=== PATIENT | male | born 1985 | race Caucasian/White ===

== ENCOUNTER 2016-07-15 19:29 | Emergency (ER) | payer OTHER ==
[~2016-07-15] VITALS: Ht 172.7 cm; Wt 128.7 kg
[2016-07-15 19:35] VITALS: BP 141/85; PULSE 84; RESP 20; TEMP 98.1; O2SAT 100
[2016-07-15] MEDS ORDERED: CIPR250T52 PO (19:42)
[2016-07-15] MEDS ORDERED: METR250 PO (19:42)
--- NOTE | 2016-07-15 20:19 | PD ---
HPI Chief Complaint: Skin Problem Time Seen by Provider: 20:13 Travel History International Travel<30 days: No Contact w/Intl Traveler<30days: No Traveled to known affect area: No History of Present Illness HPI 31-year-old right-hand dominant male presents to the ED for evaluation of 3 day history of pain, redness, tenderness in the right antecubital area. He endorses limited range of motion secondary to pain. Patient denies fever, chills numbness, tingling, weakness of the extremity. The patient was discharged from [facility] on 07/11. He states that the IV was in the affected area. He treated today with 3 ibuprofen with some improvement of the symptoms. Denies previous injury to the area. Patient also complains of rash of the abdomen axilla and groin. Onset 3 days ago. He denies pruritus. He states that he's been taking Benadryl with improvement of symptoms. He denies breathing difficulties. He denies known allergies to antibiotics. Endorses allergy to sulfa. PFSH Past Medical History Asthma: Yes Diverticulitis: Yes ?: Not Past Surgical History Appendectomy: Yes Tonsillectomy: Yes Social History Alcohol Use: No Tobacco Use: No Substance Use: No Allergies-Medications (Allergen,Severity, Reaction): Coded Allergies: Sulfa (Verified Allergy, Unknown, 07/15/16) Reported Meds & Prescriptions Reported Meds & Active Scripts Active Reported Flagyl (Metronidazole) 250 Mg Tab Unknown Dose PO QID Cipro (Ciprofloxacin HCl) 250 Mg Tab Unknown Dose PO BID Review of Systems Except as stated in HPI: all other systems reviewed are Neg Physical Exam Narrative GENERAL: Well-nourished, well-developed obese white male in no acute distress. SKIN: Focused skin assessment warm/dry. There is a tender, ropy, 2-3 cm area of induration in the right before meals. This is surrounded by an area of inflammation. No axillary lymphadenitis. There is a erythematous, blanching, patchy rash over the anterior abdomen, bilateral axilla and groin. HEAD: Normocephalic. EYES: No scleral icterus. No injection or drainage. ENT: Pearly miller tympanic membranes bilaterally. Oropharynx without erythema, edema or exudate. Airway patent. Uvula midline. NECK: Supple, trachea midline. No JVD or lymphadenopathy. CARDIOVASCULAR: Regular rate and rhythm without murmurs, gallops, or rubs. RESPIRATORY: Breath sounds equal bilaterally. No accessory muscle use. GASTROINTESTINAL: Abdomen soft, non-tender, nondistended. MUSCULOSKELETAL: No cyanosis, or edema. FOCUSED RIGHT UPPER EXTREMITY EXAM: 2+ radial pulse. No tenderness to palpation of the joint lines. Patient is able to flex to 180 and extend to 0 . Pain elicited with full extension. He retains full, active range of motion of the entire upper extremity. Strong administrative aide strength. Cap refill less than 2 seconds. Sensation intact to light touch distally. BACK: Nontender without obvious deformity. No CVA tenderness. Data Data Last Documented VS Vital Signs Date Time Temp Pulse Resp B/P Pulse Ox O2 Delivery O2 Flow Rate FiO2 07/15/16 19:35 98.1 84 20 141/85 100 Orders Us Arm Venous Doppler (07/15/16 19:40) MDM Medical Decision Making Medical Screen Exam Complete: Yes Emergency Medical Condition: Yes Differential Diagnosis Phlebitis versus thrombosis versus abscess versus cellulitis versus other Narrative Course 31-year-old right-hand dominant male resents to the ED for evaluation of 3 day history of pain, redness, tenderness in the right antecubital area. He endorses limited range of motion secondary to pain. Patient denies fever, chills numbness, tingling, weakness of the extremity. The patient was discharged from [facility] on 07/11. He states that the IV was in the affected area. He treated today with 3 ibuprofen with some improvement of the symptoms. Denies previous injury to the area. Patient also complains of rash of the abdomen, axilla and groin. Onset 3 days ago. He denies pruritus. He states that he's been taking Benadryl with improvement of symptoms. He denies breathing difficulties. . Endorses allergy to sulfa. Vitals reviewed. Physical exam reveals a nontoxic-appearing obese white male in no acute distress. There is a rope be erythematous induration of the right decubital space, suspicious for thrombophlebitis. Ultrasound confirms this suspicion. Discussed treatment of the erythematous, blanching, patchy rash with the patient and his . It is possible that this is related to the antibiotics he is currently taking for diverticulitis. I suggested changing the antibiotics. The patient and his declined at this time, stating that they will continue with round the clock Benadryl, monitor for worsening of symptoms, return as needed. Patient was provided detailed instructions for symptomatic treatment of the thrombophlebitis. He has follow-up with the primary care provider later this week and the drum worker early next week. Patient indicated understanding of instructions and is agreeable to the care plan. The patient is stable and discharged home. Diagnosis Primary Impression: Thrombophlebitis arm Additional Impression: Thrombosis of right cephalic vein Referrals: Primary Care Physician Patient Instructions: General Instructions, Superficial Thrombophlebitis (ED) Additional Instructions: Rest, hydrate. [id number]-[id number] Benadryl every 4-6 hours as directed on the label. If breathing difficulties occur call 911. Continue all previous medications as prescribed. [id number] anti-inflammatories (Advil, Aleve) as needed for pain and inflammation. Warm compresses applied to the area 20 minutes at a time as many times as possible daily. Return to normal, gentle activity as tolerated. Follow-up with the primary care provider. Return to the ED for any urgent or emergent medical condition. Disposition: 01 DISCHARGE HOME Condition: Stable Pavithra Unger Jul 15, 2016 20:19
--- NOTE | 2016-07-15 21:07 | RADHPO ---
EXAM DATE/TIME: 07/15/2016 20:05 [facility] COMPARISON: No previous studies available for comparison. INDICATIONS : Right arm pain, swelling, redness. IV removed 07/12/16. MEDICAL HISTORY : Diverticulitis. SURGICAL HISTORY : Appendectomy. ENCOUNTER: Initial ACUITY: 2 day PAIN SCORE: 4/10 LOCATION: Right arm. FINDINGS: There is thrombus in the right cephalic vein at the level of the mid and distal arm and upper forearm . Deep venous tributaries of the right upper extremity are patent. The right internal jugular vein is normal. CONCLUSION: No DVT but there is superficial thrombus involving the cephalic vein of the right arm. Gamaliel Reynaga MD on July 15, 2016 at 21:04 Board Certified Radiologist. This report was verified electronically.
== END 2016-07-15 21:25 | disposition home or self-care (01) ==
LOC: PHEFT 19:29
DX: I80.9 Phlebitis and thrombophlebitis of unspecified site (principal); I82.611 Acute embolism and thrombosis of superficial veins of right upper extremity
CPT/HCPCS: 93971

== ENCOUNTER 2017-03-18 06:11 | Observation (INO) | payer OTHER ==
[~2017-03-18] VITALS: Ht 172.7 cm; Wt 135.5 kg
[~2017-03-18 06:11] MED LIST: CIPR250T52 PO; METR250 PO; VENTAER INH
[2017-03-18] MEDS ORDERED: SYMB160A INH (06:50)
[2017-03-18] MEDS ORDERED: LIDOCAINE 0.5%/EPINEPHrine 1:200,000 SOLN 50 ML VIAL ONE (07:07)
[2017-03-18] MEDS ORDERED: OXYMETAZOLINE HCL 0.05% 15 ML NASAL SPRAY ONE (07:07)
[2017-03-18] MEDS ORDERED: LACTATED RINGER'S 1000 ML IV PRN (07:45)
[2017-03-18] MEDS ORDERED: POVIDONE IODINE 5% (ANTISEPSIS KIT) 4 APPLICATIONS EACH NARE PRN (07:45)
[2017-03-18] MEDS ORDERED: SODIUM CHLORID 0.9% 500 ML IV PRN (07:45)
[2017-03-18] MEDS ORDERED: METOPROLOL TARTRATE 25 MG TAB PO PRN (07:45)
[2017-03-18] MEDS ORDERED: CHLORHEXIDINE GLUCONATE 2 % 1 PACK (2 CLOTHS) TOPICAL PRN (07:45)
[2017-03-18] MEDS ORDERED: CLINDAMYCIN 600 MG/NS 100 ML IV PRN ×2 (07:45)
[2017-03-18 08:40] VITALS: PULSE 69
[2017-03-18] MEDS: LACTATED RINGER'S 1000 ML INJ 1,000 ML IV SCH ×2 (09:30→12:42)
[2017-03-18] MEDS ORDERED: ONDANSETRON HCL 4 MG/2 ML VIAL IV PRN (09:30)
[2017-03-18] MEDS ORDERED: ALBUTEROL SULFATE 90 MCG/ACT HFA 18 GM INHALER INH PRN (09:30)
[2017-03-18] MEDS: ACETAMINOPHEN/HYDROcodone 325 MG/5 MG TAB PO PRN ×2 (11:08→21:07)
[2017-03-18] MEDS: AMPICILLIN/SULBAC 3 GM/NS 100 ML IV SCH ×4 (14:43→21:37)
[2017-03-18 16:22] VITALS: O2SAT 99
[2017-03-18 17:19] VITALS: BP 147/63; PULSE 60; RESP 18; TEMP 98.6; O2SAT 95
[2017-03-18 20:00] VITALS: BP 106/67; PULSE 79; RESP 16; TEMP 98.9; O2SAT 99
[2017-03-18 20:13] VITALS: O2SAT 96
[2017-03-18] MEDS: BUDESONIDE-FORMOTEROL 160/4.5 MCG INHALER INH SCH (20:22)
[2017-03-19] VITALS: BP 127/67; PULSE 100; RESP 20; TEMP 99.9; O2SAT 97
[2017-03-19] MEDS: ACETAMINOPHEN/HYDROcodone 325 MG/5 MG TAB PO PRN ×3 (01:31→09:45)
[2017-03-19 04:00] VITALS: BP 151/98; PULSE 89; RESP 18; TEMP 98.9; O2SAT 97
[2017-03-19] MEDS: AMPICILLIN/SULBAC 3 GM/NS 100 ML IV SCH ×2 (05:31)
[2017-03-19] MEDS: LACTATED RINGER'S 1000 ML INJ 1,000 ML IV SCH (05:31)
[2017-03-19 08:00] VITALS: BP 160/82; PULSE 72; RESP 17; TEMP 98.7; O2SAT 97
[2017-03-19] MEDS: BUDESONIDE-FORMOTEROL 160/4.5 MCG INHALER INH SCH (08:09)
[2017-03-19] MEDS ORDERED: LIDOCAINE HCL 1% PF 5 ML SYRINGE OTHER ONE (12:00)
[2017-03-19] MEDS ORDERED: GLYCOPYRROLATE 1 MG/5 ML VIAL IV PUSH ONE (12:00)
[2017-03-19] MEDS ORDERED: ROCURONIUM INJ 50 MG/5 ML SYRINGE IV PUSH ONE (12:00)
[2017-03-19] MEDS ORDERED: PROPOFOL 200 MG/20 ML AMP IV ONE (12:00)
[2017-03-19] MEDS ORDERED: DEXAMETHASONE SOD PHOS 4 MG/ML VIAL IV ONE (12:00)
[2017-03-19] MEDS ORDERED: ONDANSETRON HCL 4 MG/2 ML VIAL IV PUSH ONE (12:00)
--- NOTE | 2017-04-21 10:28 | MP ---
cc: DANIA WHITING M.D. DATE OF SURGERY 03/18/[address] Dania Whiting PREOPERATIVE DIAGNOSIS 1. Nasal airway obstruction. 2. Nasal septal deviation. 3. Hypertrophy of inferior turbinates. POSTOPERATIVE DIAGNOSIS 1. Nasal airway obstruction. 2. Nasal septal deviation. 3. Hypertrophy of inferior turbinates. OPERATION PERFORMED 1. Open repair nasal septal fracture. 2. Bilateral submucosal resection of inferior turbinates. INDICATIONS The indications are documented in the history and physical. DESCRIPTION OF OPERATION The patient was taken to OR #2 and placed in the supine position. Following induction of general anesthesia and intubation the nose was packed bilaterally with cotton pledgets saturated in 0.05% oxymetazoline. The nasal septum and inferior turbinates were injected with a total of 12 mL of 1% Xylocaine with epinephrine 1:100,000. He was then prepped and draped for surgery. The packing was removed and a hemitransfixion incision was made in the left nasal vestibule and through this incision the mucosa of septum was elevated bilaterally as far as the junction of the bony and cartilaginous septum. This exposed the quadrangular cartilage which showed evidence of old fracture with numerous comminuted fragments obstructing the airway bilaterally. A cumulative area of 2 x 2.5 cm was removed preserving 1.5 cm dorsal and caudal cartilaginous struts. Next, the mucosa was elevated from the bony septum and the maxillary crest. The bony septum was removed with Richard-Vicente forceps and [place] septal forceps. The maxillary crest was removed using a 6 mm Faith chisel. The incision was then closed with a running suture of 4-0 chromic and the mucosal layers of septum were approximated to each other with a quilting stitch of 4-0 plain gut. The inferior turbinates were addressed next. They were fractured out medially and stab incisions made along their inferior surfaces. Through these incisions the submucosal soft tissue was reduced using a curet and preserving the conchal bone. The incisions were cauterized using the suction Bovie at 35 nicole and the remnants of the inferior turbinates were then re-lateralized to the lateral nasal wall. The nose was then packed with 7.5 cm Rapid Rhino packs and each was inflated with 7.5 mL of air. The procedure was then terminated. The patient was reversed from anesthesia and taken to Recovery in good condition. There were no complications. Blood loss was 100 mL. MD RAE Brown/ADELFO /1:33 PM /10:19 AM
== END 2017-03-19 10:12 | disposition home or self-care (01) ==
LOC: PHSDC 06:11 → PHICU 09:32
PROVIDERS: ADMIT Otolaryngology; ATTEND Otolaryngology
DX: J34.89 Other specified disorders of nose and nasal sinuses (principal); J34.2 Deviated nasal septum; J34.3 Hypertrophy of nasal turbinates; S02.2XXS Fracture of nasal bones, sequela
CPT/HCPCS: 00160; 21325; 30140; 94762; 96361; 96365; 96366; G0378; J0295; J1100; J2405; J3010; J7120

== ENCOUNTER 2017-07-07 12:49 | Emergency (ER) | payer OTHER ==
[~2017-07-07 12:49] MED LIST changes: -CIPR250T52 PO; -METR250 PO; +SYMB160A INH
[2017-07-07 13:30] VITALS: BP 140/67; PULSE 86; RESP 16; TEMP 97.7; O2SAT 96
[2017-07-07 14:06] LABS: AUTOMATED NEUTROPHIL # 4.1 TH/MM3 (1.8-7.7); BASOPHIL # 0.1 TH/MM3 (0-0.2); BASOPHIL % 1.1 % (0.0-2.0); EOSINOPHIL # 0.6 TH/MM3 (0-0.4); EOSINOPHIL % 8.3 % (0.0-4.0); HEMATOCRIT 41.9 % (39.0-51.0); HEMOGLOBIN 14.5 GM/DL (13.0-17.0); LYMPH % 19.9 % (9.0-44.0); LYMPHOCYTE # 1.4 TH/MM3 (1.0-4.8); MEAN CORPUSCULAR HEMOGLOBIN 31.5 PG (27.0-34.0); MEAN CORPUSCULAR HGB CONC 34.6 % (32.0-36.0); MEAN PLATELET VOLUME 6.9 FL (7.0-11.0); MONO % 11.7 % (0.0-8.0); MONOCYTE # 0.8 TH/MM3 (0-0.9); PLATELET COUNT 270 TH/MM3 (150-450); RED CELL DISTRIBUTION WIDTH 13.1 % (11.6-17.2); WHITE BLOOD COUNT 6.9 TH/MM3 (4.0-11.0)
[2017-07-07 14:14] LABS: PROTHROMBIN TIME - PATIENT 10.4 SEC (9.8-11.6)
--- NOTE | 2017-07-07 14:19 | RADRPT ---
EXAM DATE/TIME: 07/07/2017 13:50 [facility] COMPARISON: No previous studies available for comparison. INDICATIONS : Chest pain. MEDICAL HISTORY : None. SURGICAL HISTORY : None. ENCOUNTER: Initial ACUITY: 1 day PAIN SCORE: 0/10 LOCATION: Bilateral chest FINDINGS: PA and lateral views of the chest demonstrate the lungs to be symmetrically aerated without evidence of mass, infiltrate or effusion. The cardiomediastinal contours are unremarkable. Osseous structure s are intact. CONCLUSION: 1. No acute cardiopulmonary disease. Jarett Nath MD on July 07, 2017 at 14:16 Board Certified Radiologist. This report was verified electronically.
[2017-07-07 14:40] LABS: BICARBONATE 24.4 MEQ/L (21.0-32.0); BLOOD UREA NITROGEN 12 MG/DL (7-18); CALCIUM 8.9 MG/DL (8.5-10.1); CHLORIDE 108 MEQ/L (98-107); GLOMERULAR FILTRATION RATE 88 ML/MIN (>89); GLUCOSE,RANDOM 94 MG/DL (74-106); SODIUM (NA) 139 MEQ/L (136-145)
--- NOTE | 2017-07-07 14:40 | PD ---
HPI Chief Complaint: Chest Pain Time Seen by Provider: 13:39 Travel History International Travel<30 days: No Contact w/Intl Traveler<30days: No Traveled to known affect area: No History of Present Illness HPI 32-year-old male that presents to the ED for evaluation of chest pain to radiates to his back. Per patient is started today while he was driving. Per patient he was not doing anything strenuous when the pain started. Per patient he was trying to see hold the pain will get better if he moves. Per patient when he moves forward to tie his shoes he has a lot of pain. Per patient currently he has no pain. Per patient the pain seems to radiate to his back. He denies having anything like this before. No history of heart disease in his family or himself. He denies any history of cholesterol high blood pressure. No urinary or bowel movement issues. He does state that he has a history of diverticulitis and apparently his GI doctors trying to get a HIDA scan on him with no success. He states that the chest pain does not really cause shortness of breath but does cause discomfort when he takes a deep breath. He denies having anything like this before. No recent travel. No blood thinner use. No medication use at this time. Allergy to sulfa. States that he still has a gallbladder as well as an appendix. Pain per patient was 7 out of 10. Currently 2 out of 10. PFSH Past Medical History Asthma: Yes Cancer: No Cardiovascular Problems: No Diabetes: No Diverticulitis: Yes Endocrine: No Gastrointestinal Disorders: Yes (GERD, DIVERTICULITIS) Genitourinary: No Hepatitis: No Hiatal Hernia: No Immune Disorder: No Musculoskeletal: No Neurologic: No Psychiatric: No Reproductive: No Respiratory: Yes (NASAL ALLERGIES, ASTHMA) Thyroid Disease: No Tetanus Vaccination: Unknown Influenza Vaccination: No Past Surgical History Abdominal Surgery: Yes (APPENDECTOMY) AICD: No Appendectomy: Yes Cardiac Surgery: No Ear Surgery: No Endocrine Surgery: No Eye Surgery: No Genitourinary Surgery: No Gynecologic Surgery: No Joint Replacement: No Oral Surgery: Yes (TONSILLECTOMY & ADENOIDECTOMY) Pacemaker: No Thoracic Surgery: No Tonsillectomy: Yes Other Surgery: Yes (COLONOSCOPY) Social History Alcohol Use: Yes (6 BEERS ON SATURDAYS) Tobacco Use: No Substance Use: No Allergies-Medications (Allergen,Severity, Reaction): Coded Allergies: Sulfa (Sulfonamide Antibiotics) (Verified Allergy, Severe, Rash, 07/07/17) Reported Meds & Prescriptions Reported Meds & Active Scripts Active Reported Symbicort Inh (Budesonide/Formoterol Fumarate) 160-4.5 Mcg/Act Aero 2 Puff INH Q12HR Ventolin Hfa 18 GM Inh (Albuterol Sulfate) 90 Mcg/Act Aer 1 Puff INH Q4H PRN Review of Systems Except as stated in HPI: all other systems reviewed are Neg Physical Exam Narrative GENERAL: SKIN: Warm and dry. HEAD: Atraumatic. Normocephalic. EYES: Pupils equal and round. No scleral icterus. No injection or drainage. ENT: No nasal bleeding or discharge. Mucous membranes pink and moist. Tongue is midline. No uvula deviation. NECK: Trachea midline. No JVD. CARDIOVASCULAR: Regular rate and rhythm. No murmurs, S3, S4. RESPIRATORY: No accessory muscle use. Clear to auscultation. Breath sounds equal bilaterally. GASTROINTESTINAL: Abdomen soft, not really tender with touch. Woodson signs appears to be negative, nondistended. Hepatic and splenic margins not palpable. MUSCULOSKELETAL: Extremities without clubbing, cyanosis, or edema. No obvious deformities. Full range of motion of the upper and lower extremities bilaterally. 2+ pulses bilaterally. NEUROLOGICAL: Awake and alert. No obvious cranial nerve deficits. Motor grossly within normal limits. Five out of 5 muscle strength in the arms and legs. Normal speech. PSYCHIATRIC: Appropriate mood and affect; insight and judgment normal. Data Data Orders Orders Electrocardiogram (07/07/17 13:17) Basic Metabolic Panel (Bmp) (07/07/17 13:17) Ckmb (Isoenzyme) Profile (07/07/17 13:17) Complete Blood Count With Diff (07/07/17 13:17) Magnesium (Mg) (07/07/17 13:17) Prothrombin Time / Inr (Pt) (07/07/17 13:17) Act Partial Throm Time (Ptt) (07/07/17 13:17) Troponin I (07/07/17 13:17) Ecg Monitoring (07/07/17 13:17) Bilateral Bp Monitoring (07/07/17 13:17) Iv Access Insert/Monitor (07/07/17 13:17) Oximetry (07/07/17 13:17) Oxygen Administration (07/07/17 13:17) Chest, Pa & Lat (07/07/17 13:17) Hepatic Functional Panel (07/07/17 14:12) Lipase (07/07/17 14:12) Labs Laboratory Tests Test 07/07/17 13:30 White Blood Count 6.9 TH/MM3 Red Blood Count 4.60 MIL/MM3 Hemoglobin 14.5 GM/DL Hematocrit 41.9 % Mean Corpuscular Volume 91.0 FL Mean Corpuscular Hemoglobin 31.5 PG Mean Corpuscular Hemoglobin Concent 34.6 % Red Cell Distribution Width 13.1 % Platelet Count 270 TH/MM3 Mean Platelet Volume 6.9 FL Neutrophils (%) (Auto) 59.0 % Lymphocytes (%) (Auto) 19.9 % Monocytes (%) (Auto) 11.7 % Eosinophils (%) (Auto) 8.3 % Basophils (%) (Auto) 1.1 % Neutrophils # (Auto) 4.1 TH/MM3 Lymphocytes # (Auto) 1.4 TH/MM3 Monocytes # (Auto) 0.8 TH/MM3 Eosinophils # (Auto) 0.6 TH/MM3 Basophils # (Auto) 0.1 TH/MM3 CBC Comment DIFF FINAL Differential Comment Prothrombin Time 10.4 SEC Prothromb Time International Ratio 1.0 RATIO Activated Partial Thromboplast Time 27.1 SEC MDM Medical Decision Making Medical Screen Exam Complete: Yes Emergency Medical Condition: Yes Medical Record Reviewed: Yes Differential Diagnosis Chest pain versus atypical chest pain versus gastroenteritis versus gastritis versus pancreatitis versus gallbladder disease versus ACS Narrative Course 32-year-old male that presents to the ED for evaluation of chest pain. Patient was properly examined and was found to have signs and symptoms consistent appears to be chest pain. Clearly at this time. Labs and imaging order. I am somewhat concerned that this may be GI in nature rather than cardiac. Hands new blood work was ordered. Patient will be signed out to oncoming provider pending disposition and plan. Deric Douglas Jul 07, 2017 14:40
[2017-07-07 14:44] LABS: TROPONIN I LESS THAN 0.02 NG/ML (0.02-0.05)
[2017-07-07] MEDS ORDERED: ONDANSETRON HCL 4 MG/2 ML VIAL IV PUSH ONE (14:45)
[2017-07-07] MEDS ORDERED: ASPIRIN 325 MG TAB PO ONE (14:45)
[2017-07-07] MEDS ORDERED: MORPHINE SULFATE 2 MG/ML SYRINGE IV PUSH ONE (14:45)
--- NOTE | 2017-07-07 14:50 | EKG ---
Date Performed: 07/07/2017 Time Performed: 13:26:29 PTAGE: 32 years EKG: Sinus rhythm NONSPECIFIC T-WAVE ABNORMALITY BORDERLINE ECG NO PREVIOUS TRACING DOCTOR: Freddy Cason Interpretating Date/Time 07/07/2017 14:49:49
[2017-07-07 14:51] LABS: ALBUMIN 3.8 GM/DL (3.4-5.0); DIRECT BILIRUBIN ADULT 0.1 MG/DL (0.0-0.2)
[2017-07-07 14:53] LABS: INDIRECT BILIRUBIN 0.2 MG/DL (0.0-0.8); TOTAL BILIRUBIN ADULT 0.3 MG/DL (0.2-1.0); TOTAL PROTEIN 7.4 GM/DL (6.4-8.2)
--- NOTE | 2017-07-07 15:32 | PD ---
HPI Chief Complaint: Chest Pain Time Seen by Provider: 15:31 Travel History International Travel<30 days: No Contact w/Intl Traveler<30days: No Traveled to known affect area: No History of Present Illness HPI 32-year-old male came to the emergency room with history of right sided chest pain that started at around 1130 this morning when he was at work. Patient says that the pain was sharp and was worse when he took a deep breath or bend down to tie his shoelaces. This concerned him and he came to the emergency room. Since then the pain has moved to the back of the exact spot. Vital signs are stable. Patient has never had this kind of pain before. He was getting worked up for gallbladder issues. He had an ultrasound and a HIDA scan done. This still waiting to hear back from the doctor regarding the plan. No history of nausea vomiting this time. Vital signs were stable. Patient is not a smoker. Patient denied any long distance travel or prolonged hospitalization or procedures recently. No history of cough or fever or chills PFSH Past Medical History Narrative Medical List of his past medical, surgical, social and family history reviewed from the nursing note. Asthma: Yes Cancer: No Cardiovascular Problems: No Diabetes: No Diverticulitis: Yes Endocrine: No Gastrointestinal Disorders: Yes (GERD, DIVERTICULITIS) Genitourinary: No Hepatitis: No Hiatal Hernia: No Immune Disorder: No Musculoskeletal: No Neurologic: No Psychiatric: No Reproductive: No Respiratory: Yes (NASAL ALLERGIES, ASTHMA) Thyroid Disease: No Tetanus Vaccination: Unknown Influenza Vaccination: No Past Surgical History Abdominal Surgery: Yes (APPENDECTOMY) AICD: No Appendectomy: Yes Cardiac Surgery: No Ear Surgery: No Endocrine Surgery: No Eye Surgery: No Genitourinary Surgery: No Gynecologic Surgery: No Joint Replacement: No Oral Surgery: Yes (TONSILLECTOMY & ADENOIDECTOMY) Pacemaker: No Thoracic Surgery: No Tonsillectomy: Yes Other Surgery: Yes (COLONOSCOPY) Social History Alcohol Use: Yes (6 BEERS ON SATURDAYS) Tobacco Use: No Substance Use: No Allergies-Medications (Allergen,Severity, Reaction): Coded Allergies: Sulfa (Sulfonamide Antibiotics) (Verified Allergy, Severe, Rash, 07/07/17) Comments List of his allergies reviewed from the nursing note. Reported Meds & Prescriptions Reported Meds & Active Scripts Active Ibuprofen 600 Mg Tab 600 Mg PO Q6H PRN Reported Symbicort Inh (Budesonide/Formoterol Fumarate) 160-4.5 Mcg/Act Aero 2 Puff INH Q12HR Ventolin Hfa 18 GM Inh (Albuterol Sulfate) 90 Mcg/Act Aer 1 Puff INH Q4H PRN Narrative Medication List of his home medications reviewed from the nursing note. Review of Systems Except as stated in HPI: all other systems reviewed are Neg Cardiovascular: Positive: Chest Pain or Discomfort Physical Exam Narrative GENERAL: Awake, alert, obese, mild distress SKIN: Focused skin assessment warm/dry. HEAD: Atraumatic. Normocephalic. EYES: Pupils equal and round. No scleral icterus. No injection or drainage. ENT: No nasal bleeding or discharge. Mucous membranes pink and moist. NECK: Trachea midline. No JVD. CARDIOVASCULAR: Regular rate and rhythm. No murmur appreciated. RESPIRATORY: No accessory muscle use. Clear to auscultation. Breath sounds equal bilaterally. GASTROINTESTINAL: Abdomen soft, non-tender, nondistended. Hepatic and splenic margins not palpable. MUSCULOSKELETAL: No obvious deformities. No clubbing. No cyanosis. No edema. NEUROLOGICAL: Awake and alert. No obvious cranial nerve deficits. Motor grossly within normal limits. Normal speech. PSYCHIATRIC: Appropriate mood and affect; insight and judgment normal. Data Data Last Documented VS Orders Orders Electrocardiogram (07/07/17 13:17) Basic Metabolic Panel (Bmp) (07/07/17 13:17) Ckmb (Isoenzyme) Profile (07/07/17 13:17) Complete Blood Count With Diff (07/07/17 13:17) Magnesium (Mg) (07/07/17 13:17) Prothrombin Time / Inr (Pt) (07/07/17 13:17) Act Partial Throm Time (Ptt) (07/07/17 13:17) Troponin I (07/07/17 13:17) Ecg Monitoring (07/07/17 13:17) Bilateral Bp Monitoring (07/07/17 13:17) Iv Access Insert/Monitor (07/07/17 13:17) Oximetry (07/07/17 13:17) Oxygen Administration (07/07/17 13:17) Chest, Pa & Lat (07/07/17 13:17) Hepatic Functional Panel (07/07/17 14:12) Lipase (07/07/17 14:12) Aspirin (Aspirin) (07/07/17 14:45) Morphine Inj (Morphine Inj) (07/07/17 14:45) Ondansetron Inj (Zofran Inj) (07/07/17 14:45) CKMB (07/07/17 13:30) CKMB% (07/07/17 13:30) D-Dimer (07/07/17 15:39) Ketorolac Inj (Toradol Inj) (07/07/17 15:45) Ed Discharge Order (07/07/17 17:09) Electrocardiogram (07/07/17 16:08) Labs Laboratory Tests Test 07/07/17 13:30 White Blood Count 6.9 TH/MM3 Red Blood Count 4.60 MIL/MM3 Hemoglobin 14.5 GM/DL Hematocrit 41.9 % Mean Corpuscular Volume 91.0 FL Mean Corpuscular Hemoglobin 31.5 PG Mean Corpuscular Hemoglobin Concent 34.6 % Red Cell Distribution Width 13.1 % Platelet Count 270 TH/MM3 Mean Platelet Volume 6.9 FL Neutrophils (%) (Auto) 59.0 % Lymphocytes (%) (Auto) 19.9 % Monocytes (%) (Auto) 11.7 % Eosinophils (%) (Auto) 8.3 % Basophils (%) (Auto) 1.1 % Neutrophils # (Auto) 4.1 TH/MM3 Lymphocytes # (Auto) 1.4 TH/MM3 Monocytes # (Auto) 0.8 TH/MM3 Eosinophils # (Auto) 0.6 TH/MM3 Basophils # (Auto) 0.1 TH/MM3 CBC Comment DIFF FINAL Differential Comment Prothrombin Time 10.4 SEC Prothromb Time International Ratio 1.0 RATIO Activated Partial Thromboplast Time 27.1 SEC D-Dimer Quantitative (PE/DVT) LESS THAN 0.19 MG/L FEU Blood Urea Nitrogen 12 MG/DL Creatinine 1.00 MG/DL Random Glucose 94 MG/DL Calcium Level 8.9 MG/DL Magnesium Level 2.0 MG/DL Sodium Level 139 MEQ/L Potassium Level 3.9 MEQ/L Chloride Level 108 MEQ/L Carbon Dioxide Level 24.4 MEQ/L Anion Gap 7 MEQ/L Estimat Glomerular Filtration Rate 88 ML/MIN Total Bilirubin 0.3 MG/DL Direct Bilirubin 0.1 MG/DL Indirect Bilirubin 0.2 MG/DL Aspartate Amino Transf (AST/SGOT) 26 U/L Alanine Aminotransferase (ALT/SGPT) 58 U/L Alkaline Phosphatase 68 U/L Total Creatine Kinase 206 U/L Creatine Kinase MB 1.3 NG/ML Troponin I LESS THAN 0.02 NG/ML Total Protein 7.4 GM/DL Albumin 3.8 GM/DL Lipase 142 U/L MDM Medical Decision Making Medical Screen Exam Complete: Yes Emergency Medical Condition: Yes Medical Record Reviewed: Yes Interpretation(s) Twelve-lead EKG was reviewed by me. Normal sinus rhythm, normal axis, nonspecific ST-T wave changes. Heart rate of 73 bpm. Differential Diagnosis PE, nonspecific chest pain, acute cholecystitis Narrative Course 4:34 PM blood test was ordered while patient was up in the ambulatory hallway. Blood test results are within normal limits. I have ordered a d-dimer for this patient and waiting for that to be resulted. Chest x-ray is negative. If the d -dimer is negative I will discharge this patient home. His pain is atypical and on the right side of the chest. He needs to follow-up with his physicians were working him up for his gallbladder issues. 4:56 PM awaiting for the d-dimer to be resulted. Case most probably will be signed over to the oncoming ER physician. Procedures EKG Prior to Arrival: No Diagnosis Primary Impression: Atypical chest pain Additional Instructions: Take the medication as per the prescription direction. Return to the emergency room if the condition worsens any other new concerns. Otherwise follow-up with your primary care. Med/Other Pt SpecificInfo: Prescription(s) given Scripts Ibuprofen (Ibuprofen) 600 Mg Tab 600 MG PO Q6H Y for Pain/Inflammation, #40 TAB 0 Refills Prov: Glenn Nicole MD 07/07/17 Disposition: DISCHARGE HOME Condition: Stable Glenn Nicole MD Jul 07, 2017 15:32
[2017-07-07] MEDS ORDERED: KETOROLAC TROMETHAMINE 30 MG/ML (IVP) VIAL IV PUSH ONE (15:45)
[2017-07-07 15:59] VITALS: BP_SYST 138; BP_SYST 157; BP_DIAS 70; BP_DIAS 90; PULSE 70; PULSE 79; RESP 15; O2SAT 97
[2017-07-07 16:00] VITALS: BP 138/70; PULSE 80; RESP 16; O2SAT 97
[2017-07-07] MEDS ORDERED: IBUP-232 PO (17:10)
--- NOTE | 2017-07-07 20:12 | EKG ---
Date Performed: 07/07/2017 Time Performed: 16:08:29 PTAGE: 32 years EKG: Sinus rhythm NORMAL ECG No significant change from prior electrocardiogram. PREVIOUS TRACING : 07/07/2017 13.26 DOCTOR: Freddy Cason Interpretating Date/Time 07/07/2017 20:11:08
== END 2017-07-07 18:00 | disposition home or self-care (01) ==
LOC: NEPD 12:49
DX: R07.89 Other chest pain (principal); J45.909 Unspecified asthma, uncomplicated; Z79.899 Other long term (current) drug therapy
CPT/HCPCS: 71046; 80048; 80076; 82550; 82552; 83690; 83735; 84484; 85025; 85379; 85610; 85730; 93005; 96374; 96375; 99285; J1885; J2405